=== PATIENT | male | born 1995 | race Two or more races ===

== ENCOUNTER 2019-01-05 20:06 | Emergency (ER) | payer BC, MEDICAID ==
[~2019-01-05] VITALS: Ht 175.3 cm; Wt 88.5 kg
--- NOTE | 2019-01-05 20:50 | NUR ---
BIB SELF FROM HOME. AAOX4. NAD, BREATHING EVEN AND UNLABORED. AMBULATORY. C/O LIGHTHEADEDNESS AND DIZZYNESS SINCE MONDAY. PT REPORT THE FELLING TO BE PRESENT WHEN SITTING DOWN. PT REPORTS OF FEELING HE IS GOING TO PASS OUT AND REPORTS NO PASSING OUT EPISODE. NO NUEROLOGIC DEFICIT NOTED UPON ASSESSMENT. DENIES CP. NO HEADACHE. -N/V/D. AFEBRILE. TO E ER BED 11. AT BEDSIDE
--- NOTE | 2019-01-05 20:50 | NUR ---
Note undone in EDM - 01/05/19 at 2122 by IVON BIB SELF FROM HOME. AAOX4. NAD, BREATHING EVEN AND UNLABORED. AMBULATORY. C/O LIGHTHEADEDNESS AND DIZZYNESS SINCE MONDAY. PT REPORT THE FELLING TO BE PRESENT WHEN SITTING DOWN. PT REPORTS OF FEELING HE IS GOING TO PASS OUT AND REPORTS NO PASSING OUT EPISODE. NO NUEROLOGIC DEFICIT NOTED UPON ASSESSMENT. TO E ER BED 11. MD AT BEDSIDE
--- NOTE | 2019-01-05 21:05 | NUR ---
EKG AND LAB AT BEDSIDE
[2019-01-05 21:11] LABS: BASOPHILS % (AUTO) 0.4 % (0.0-2.0); EOSINOPHILS % (AUTO) 0.4 % (0.0-6.0); HEMATOCRIT 43 % (39-51); HEMOGLOBIN 14.7 g/dL (13.5-17.5); LYMPHOCYTES # (AUTO) 1.8 /CMM (0.8-4.8); LYMPHOCYTES % (AUTO) 26.5 % (20.0-44.0); MEAN CORPUSCULAR HGB CONC 34 g/dl (31.0-36.0); MEAN CORPUSCULAR VOLUME 90 fL (80-96); MONOCYTES # (AUTO) 0.5 /CMM (0.1-1.30); MONOCYTES % (AUTO) 6.7 % (2.0-12.0); NEUTROPHILS # (AUTO) 4.5 /CMM (1.8-8.9); PLATELET COUNT (AUTO) 178 /CMM (150-450); RED BLOOD CELL COUNT(AUTO) 4.82 MIL/uL (4.5-6.0); WHITE BLOOD COUNT (AUTO) 6.8 K/uL (4.3-11.0)
--- NOTE | 2019-01-05 21:20 | NUR ---
PT BACK FROM CT ON WHEELCHAIR
[2019-01-05 21:41] LABS: CALCIUM, SERUM 9.4 mg/dL (8.5-10.1); CREATININE 0.9 mg/dL (0.6-1.3); POTASSIUM 3.9 mmol/L (3.5-5.1)
--- NOTE | 2019-01-05 22:05 | NUR ---
Patient discharged to home in stable condition. Written and verbal after care instructions given. Patient verbalizes understanding of instruction. Pt ambulatory with a steady gait
[2019-01-05 22:06] VITALS: BP 131/71
== END 2019-01-05 22:07 | disposition home or self-care (01) ==
LOC: ER 20:10
DX: R42 Dizziness and giddiness (principal); R55 Syncope and collapse
CPT/HCPCS: 36415; 70450-TC; 80048-TC; 85025-TC

== ENCOUNTER 2022-01-30 00:12 | Emergency (ER) | payer BC ==
[~2022-01-30] VITALS: Ht 175.3 cm; Wt 95.3 kg
--- NOTE | 2022-01-30 00:40 | NUR ---
TO ER BED 13. BIBMOTHER C/O "BEING MORE DISORIENTED" S/P DRINKING ALCOHOL. ALSO "WANTS A CT SCAN OF HEAD FOR HEADACHE [id number]". BREATHING IS EVEN AND NONLABORED. CONNECTED TO MONITOR. AWAITING MD ORDERS
--- NOTE | 2022-01-30 01:10 | NUR ---
PT TAKEN FOR CT SCAN
--- NOTE | 2022-01-30 01:22 | NUR ---
PT RETURNED FROM CT SCAN , RECONNECTED TO MONITOR
[2022-01-30 02:06] LABS: BASOPHILS % (AUTO) 0.1 % (0.0-2.0); EOSINOPHILS % (AUTO) 0.2 % (0.0-6.0); HEMATOCRIT 43 % (39-51); HEMOGLOBIN 14.4 g/dL (13.5-17.5); LYMPHOCYTES # (AUTO) 1.5 K/uL (0.8-4.8); LYMPHOCYTES % (AUTO) 14.1 % (20.0-44.0); MEAN CORPUSCULAR HGB CONC 33 g/dl (31.0-36.0); MEAN CORPUSCULAR VOLUME 90 fL (80-96); MONOCYTES # (AUTO) 0.3 K/uL (0.1-1.30); MONOCYTES % (AUTO) 2.8 % (2.0-12.0); NEUTROPHILS # (AUTO) 8.5 K/uL (1.8-8.9); NEUTROPHILS % (AUTO) 82.8 % (43.0-81.0); PLATELET COUNT (AUTO) 186 K/uL (150-450); RED BLOOD CELL COUNT(AUTO) 4.83 MIL/uL (4.5-6.0); WHITE BLOOD COUNT (AUTO) 10.3 K/uL (4.3-11.0)
[2022-01-30 02:17] LABS: CALCIUM, SERUM 8.8 mg/dL (8.5-10.1); CREATININE 0.9 mg/dL (0.6-1.3); MAGNESIUM 2.4 mg/dL (1.8-2.4); POTASSIUM 3.8 mmol/L (3.5-5.1)
--- NOTE | 2022-01-30 03:40 | NUR ---
STAT RAD PAGED
--- NOTE | 2022-01-30 04:50 | NUR ---
Patient discharged to home in stable condition. Written and verbal after care instructions given. Patient verbalizes understanding of instruction.
[2022-01-30 04:53] VITALS: BP 128/69
== END 2022-01-30 04:54 | disposition home or self-care (01) ==
LOC: ER 00:21
DX: R42 Dizziness and giddiness (principal); R51.9 Headache, unspecified; F10.129 Alcohol abuse with intoxication, unspecified; Y90.9 Presence of alcohol in blood, level not specified
CPT/HCPCS: 36415; 70450-TC; 80048-TC; 83735-TC; 85025-TC